=== PATIENT | female | born 1985 ===

== ENCOUNTER → 2016-06-17 | Outpatient (REF) | LOC: WSOH 08:00 | DX: Z02.89 Encounter for other administrative examinations (principal) ==

== ENCOUNTER 2018-05-18 11:32 | Inpatient (IN) | payer OTHER ==
[~2018-05-18] VITALS: Ht 160 cm; Wt 71.4 kg
[2018-05-19] VITALS (40 sets, daily range): BP systolic 110–144; BP diastolic 56–83; PULSE 61–116; TEMP 97.4–98.4
--- NOTE | 2018-05-19 07:05 | NUR ---
Patient arrives ambulatory with spouse for scheduled induction of labor. Patient denies contractions, ROM or vaginal bleeding. Reports normal movement. Patient changes into gown, EFM explained and placed. VSS. Plan of care and induction orders reviewed, patient agrees and denies questions. 0715- IV started in LFA, labs obtained. LR infusing per protocol. Assessment completed. Consents explained and signed. Patient denies questions. 0740- SVE unchanged from office. Pitocin administration reviewed with patient. Pitocin started at 2 mU per protocol and order following reactive FHR strip. 0745- Dr. Bhatt updated on patient. Reviewed SVE and FHR strip. Physician will come assess patient later this morning. Orders to continue Pitocin induction.
[2018-05-19] MEDS ORDERED: PRENATAL (07:32)
[2018-05-19 07:46] LABS: BASO % 0.3 % (0.0-2.0); EOS % 0.5 % (0-4.0); GRAN # 6.6 (1.4-6.5); GRAN % 74.2 % (42.2-75.2); HEMATOCRIT 38.6 % (37.0-47.0); HEMOGLOBIN 12.8 g/dl (12.5-16.0); LYMPH # 1.5 (1.2-3.4); LYMPH % 16.3 % (20.0-51.0); MEAN CELL VOLUME 89 fl (80.0-100.0); MEAN CORPUSCULAR HEMOGLOBIN 29 pg (27.0-31.0); MEAN CORPUSCULAR HGB CONC 33 g/dl (33.0-37.0); MEAN PLATELET VOLUME 10.1 fl (7.4-10.4); MONO # 0.6 (0.1-0.6); MONO % 6.9 % (1.7-9.3); PLATELET COUNT 271 K/mm3 (130-400); RED BLOOD COUNT 4.35 M/mm3 (4.10-5.30); REDCELL DISTRIBUTION WIDTH-CV 12.6 % (11.5-14.5)
--- NOTE | 2018-05-19 07:53 | NUR ---
0754- Spontaneous prolonged FHR deceleration noted lasting approximately four minutes intermittently to 70 bpm. Patient repositioned LL, then RL. Pitocin discontinued at 0756. LR bolus infusing and Oxygen via mask at 10L applied. Continued patient repositioning to LL then RL. FHR recovers at 0758. Attempt to contact physician at 0759, see physician notifications. Patient updated on plan of care. Pitocin remains off, patient in RL position. 0810- Oxygen removed. Patient updated on plan of care. See physician documentation.
--- NOTE | 2018-05-19 08:30 | NUR ---
Reactive FHR strip obtained. Pitocin restarted at 2 mU per protocol and order.
--- NOTE | 2018-05-19 09:20 | NUR ---
0920- Dr. Bhatt on unit. Reviews FHR strip. At bedside, reviews AROM with patient. Patient agrees. 0922- SVE per provider 2. AROM by Dr. Bhatt for moderate amount of clear fluid. SVE following AROM . Pericare given and patient updated on plan of care. Patient may have epidural when desired. Orders to continue Pitocin induction.
--- NOTE | 2018-05-19 10:40 | NUR ---
1040- Patient requesting epidural. Yessenia Molina CRNA notified. LR bolus infusing prior to epidural placement. 1045- Yessenia Molina BROADCAST FIELD SUPERVISOR at bedside for placement. Patient assisted to sit on edge of bed for placement. EFM adjusted, difficulty tracing continously due to maternal position. 1058- Epidural test dose by Yessenia Molina CRNA. Patient tolerates well, no adverse reactions noted. See anesthesia record. 1100- Patient repositioned WL following epidural placement. Updated on safety and plan of care.
--- NOTE | 2018-05-19 11:52 | NUR ---
Recurrent late decelerations noted with contractions. Patient repositioned WR by Papa Arredondo RN while this RN on break, LR bolus infusing. 1200- This RN back from break. Patient repositioned RL. Late decelerations resolve. Will update physician.
--- NOTE | 2018-05-19 12:36 | NUR ---
FHR deceleration intermittently to 70 bpm lasting approximately 1.5 minutes. Patient repositioned LL, SVE 790/+1. Pericare given. Dr. Bhatt notified, see physician notification.
--- NOTE | 2018-05-19 13:00 | NUR ---
Dr. Bhatt at bedside. Reviews FHR strip. SVE per provider /+1. Pericare given and patient repositioned LL. Patient comfortable with epidural. Physician remains on unit.
--- NOTE | 2018-05-19 15:00 | NUR ---
SVE 10/+2. Patient reports pressure. Pericare given and dutton catheter removed prior to pushing. Dr. Bhatt notified.
--- NOTE | 2018-05-19 15:10 | NUR ---
1500- SVE 10/+2. Rodriguez catheter removed prior to pushing. Pericare given. 1510- Patient begins pushing with contractions with RN at bedside. Moves vertex well. 1538- Dr. Bhatt notified of pushing progress and requested for impending delivery. Patient continues pushing.
--- NOTE | 2018-05-19 16:00 | NUR ---
1600- Dr. Bhatt at bedside. Patient assisted to footplates. Periprep completed. Patient continues pushing with contractions with physician at bedside. 1613- Deep variables audible to 60 bpm with contractions. Physician discussing VAVD with patient, agrees. 1619- Vacuum applied per physician per protocol. Traction applied per policy while patient pushes with contraction. head delivered easily with body immediately following at 1620. Viable male delivered attended by Dr. Bhatt. to mother's abdomen, care of to Adelaida Bejarano RN. Apgars 8/9/9. 1624- Spont delivery of placenta. Pitocin bolus started at 333 ml/hr/protocol. Fundal massage by RN, firm and at umbilicus. Left labial and right side wall laceration repaired by physician. Pericare given, ice pack applied. Patientudpated on plan of care and safety.
[2018-05-20 02:00] VITALS: BP 119/79; PULSE 81
--- NOTE | 2018-05-20 09:13 | NUR ---
Initial visit; Mom thanked Plasterer Apprentice for offering congratulations and God's blessings for the of her son. Plasterer Apprentice thanked them for choosing [facility].
[2018-05-20 09:22] VITALS: BP 115/63; PULSE 89; TEMP 98.1
[2018-05-20 16:08] VITALS: BP 118/81; PULSE 85; TEMP 98.1
[2018-05-20 20:00] VITALS: BP 108/71; PULSE 110; TEMP 97.5
[2018-05-21] MEDS ORDERED: PERCOCET 325 MG1 TA2 PO (08:20)
[2018-05-21] MEDS ORDERED: MOTRIN 800800 MG/TAB PO (08:21)
[2018-05-21 09:00] VITALS: BP 120/72; PULSE 87; TEMP 98.4
== END 2018-05-21 13:00 | disposition home or self-care (01) | DRG 807 ==
LOC: LDR 05-19 06:54 → OB 05-19 06:54 → LDR 05-19 11:19 → OB 05-19 19:00
PROVIDERS: ADMIT Obstetrics & Gynecology
PROC: 10D07Z6 Extraction of Products of Conception, Vacuum, Via Natural or Artificial Opening (ICD-10-PCS; principal; 2018-05-19)
PROC: 0KQM0ZZ Repair Perineum Muscle, Open Approach (ICD-10-PCS; 2018-05-19)
PROC: 3E033VJ Introduction of Other Hormone into Peripheral Vein, Percutaneous Approach (ICD-10-PCS; 2018-05-19)
PROC: 10907ZC Drainage of Amniotic Fluid, Therapeutic from Products of Conception, Via Natural or Artificial Opening (ICD-10-PCS; 2018-05-19)
PROC: 0UQMXZZ Repair Vulva, External Approach (ICD-10-PCS; 2018-05-19)
DX: O76 Abnormality in fetal heart rate and rhythm complicating labor and delivery (principal); Z37.0 Single live birth; Z3A.39 39 weeks gestation of pregnancy; O70.1 Second degree perineal laceration during delivery; O69.81X0 Labor and delivery complicated by cord around neck, without compression, not applicable or unspecified; O99.824 Streptococcus B carrier state complicating childbirth
CPT/HCPCS: J2405; J2540; J2590; J7120